=== PATIENT | female | born 1975 | race American Indian/Alaskan Native ===

== ENCOUNTER 2016-07-17 05:54 | Day surgery (SDC) | payer BC, MEDICAID ==
[2016-07-17] MEDS ORDERED: VANCOMYCIN/NS 1 GM/250 ML 1 GM/250 ML BAG IV NR (06:00)
[2016-07-17] MEDS ORDERED: NACL BACTERIOSTATIC INFILTRATI ONE (06:21)
[2016-07-17] MEDS ORDERED: LACTATED RINGERS 1,000 ML IV SCH (06:21)
[2016-07-17] MEDS ORDERED: DILAUDID ONE (06:33)
[2016-07-17] MEDS ORDERED: DIPRIVAN 10 MG/ML IV ONE (06:33)
[2016-07-17] MEDS ORDERED: XYLOCAINE MPF 2% ONE (06:34)
[2016-07-17] MEDS ORDERED: DILAUDID IV PRN (06:46)
[2016-07-17] MEDS ORDERED: NORCO 5/325 PO PRN (06:46)
[2016-07-17] MEDS ORDERED: ZOFRAN IV PRN (06:46)
--- NOTE | 2016-07-17 06:49 | Anesthesia Day of Surgery ---
Anesthesia Day of Surgery - Day of Surgery Patient Examined: Yes Patient H&P Reviewed: Yes Patient is NPO: Yes
--- NOTE | 2016-07-17 06:50 | Anesthesia Consultation ---
Anesthesia Consult and Med Hx - Airway Anesthetic Teeth Evaluation: Good (braces) ROM Head & Neck: Adequate Mental/Hyoid Distance: Adequate Mallampati Class: Class II Intubation Access Assessment: Probably Good - Pulmonary Exam CTA: Yes - Cardiac Exam Cardiac Exam: RRR - Pre-Operative Health Status ASA Pre-Surgery Classification: ASA2 Proposed Anesthetic Plan: General - Pulmonary Hx Smoking: No Hx Asthma: No Hx Sleep Apnea: No (REYMUNDO PRE SCREEN HIGH RISK) - Cardiovascular System Hx Hypertension: Yes (FOR 22 YRS) Hx Coronary Artery Disease: No Hx Heart Attack/AMI: No - Central Nervous System Hx Seizures: No CVA: No Hx Psychiatric Problems: No - Endocrine Hx Renal Disease: No Hx Liver Disease: No Hx Non-Insulin Dependent Diabetes: No Hx Hypothyroidism: No - Other Systems Hx Cancer: No Hx Obesity: Yes (BMI 44) - Additional Comments Anesthesia Medical History Comments: NPO after MN. No prior anesthesia problems. Hx of HTN
[2016-07-17] MEDS ORDERED: VERSED IV NR (07:00)
[2016-07-17] MEDS ORDERED: PEPCID PO NR (07:00)
[2016-07-17 07:12] LABS: Hematocrit 29.6 % (30.3-42.9); Hemoglobin 9.3 gm/dl (10.1-14.3)
[2016-07-17] MEDS ORDERED: NEO SYNEPHRINE/NS Syringe(OR USE) IV ONE (07:54)
[2016-07-17] MEDS ORDERED: DECADRON ONE (08:09)
[2016-07-17] MEDS ORDERED: ZOFRAN ONE (08:09)
--- NOTE | 2016-07-17 09:12 | Operative Report ---
PREOPERATIVE DIAGNOSES: 1. Cicatrix of left breast. 2. Hypertrophic scarring of left breast. 3. Mastodynia. POSTOPERATIVE DIAGNOSES: 1. Cicatrix of left breast. 2. Hypertrophic scarring of left breast. 3. Mastodynia. PROCEDURE: Complex scar revision of left breast, 50 cm. DESCRIPTION OF PROCEDURE: The patient was brought in the operating room and placed on the table in supine position. Following administration of general anesthesia, the left breast was prepped with Betadine solution and draped in the usual sterile manner. A #15 blade scalpel was used to circumferentially excise the raised, thickened scars of the nipple-areolar complex and along the inframammary fold from below the nipple-areolar complex into the axilla. Scar was sent to pathology as specimen. Hemostasis controlled using electrocautery. Closure was performed in layers using interrupted and running subcuticular 2-0 Monocryl sutures. Mastisol, Steri-Strips, and sterile dressings were applied. The patient tolerated the procedure well and returned to recovery room in stable condition. JOB# [id number] FTW/NTS
[2016-07-17] MEDS ORDERED: MARCAINE 0.25% INFILTRATI ONE (09:30)
[2016-07-17] MEDS ORDERED: XYLOCAINE 1%/ EPI 1:100,000 INFILTRATI ONE (09:30)
[2016-07-17 11:48] VITALS: BP 108/64
--- NOTE | 2016-07-17 14:48 | Post Anesthesia Evaluation ---
- Post Anesthesia Evaluation Patient Participated: Yes Airway Patent: Yes Stable Respiratory Function: Yes Nausea/Vomiting: No Temp > 96.8F: Yes Pain Manageable: Yes Adequeate Hydration: Yes Anesthesia Complications: No Block Receding Appropriately: Not Applicable Patient on Ventilator: No
== END 2016-07-17 11:35 | disposition home or self-care (01) ==
LOC: OR 05:54
PROVIDERS: ATTEND Plastic Surgery
DX: L91.0 Hypertrophic scar (principal); N64.4 Mastodynia; I10 Essential (primary) hypertension; E66.9 Obesity, unspecified; Z68.41 Body mass index [BMI] 40.0-44.9, adult; Z79.899 Other long term (current) drug therapy; Z82.49 Family history of ischemic heart disease and other diseases of the circulatory system
CPT/HCPCS: 13101; 13102; 36415; 81025; 84132; 85014; 85018; 88302; J1100; J1170; J2250; J2370; J2405; J2704; J3370; J7120; 88304; 88305